=== PATIENT | female | born 1990 | race Caucasian/White ===

== ENCOUNTER 2017-03-18 09:24 | Emergency (ER) | payer OTHER ==
[2017-03-18 09:29] VITALS: BP 108/61; PULSE 82; O2SAT 100
[2017-03-18 09:35] VITALS: RESP 16; TEMP 97.8
--- NOTE | 2017-03-18 10:06 | ED PDOC ---
Upper Extremity Pain/Injury Time Seen by Provider: 03/18/17 09:38 Chief Complaint (Nursing): Upper Extremity Problem/Injury Chief Complaint (Provider): left wrist/hand pain History Per: Patient History/Exam Limitations: no limitations Onset/Duration Of Symptoms: Hrs (<1) Current Symptoms Are (Timing): Still Present Quality: Sharp Severity: Moderate Exacerbating Factor(s): Strenuous Use Of Affected Area, Movement Additional Complaint(s): 27yo female tripped/fell on curb, injuring left hand/wrist on outstretched hand. Denies head or neck trauma. Also injured R knee w small abrasion. States UTD on tetanus vaccine. Past Medical History Reviewed: Historical Data, Nursing Documentation, Vital Signs Vital Signs: Last Vital Signs Temp 97.8 F 03/18/17 09:33 Pulse 82 03/18/17 09:33 Resp 16 03/18/17 09:33 BP 108/61 03/18/17 09:33 Pulse Ox 100 03/18/17 09:33 - Medical History PMH: Depression, Hypothyroidism - Family History Family History: States: Unknown Family Hx - Social History Current smoker - smoking cessation education provided: No - Home Medications Home Medications: Ambulatory Orders Medication Instructions Recorded Ibuprofen [Motrin Tab] 600 mg PO Q6 PRN #15 tab 03/18/17 - Allergies Allergies/Adverse Reactions: Allergies Allergy/AdvReac Type Severity Reaction Status Date / Time No Known Allergies Allergy Verified 03/18/17 09:33 Review of Systems ROS Statement: Except As Marked, All Systems Reviewed And Found Negative Eyes: Negative for: Vision Change Cardiovascular: Negative for: Chest Pain Respiratory: Negative for: Shortness of Breath Gastrointestinal: Negative for: Abdominal Pain Musculoskeletal: Positive for: Hand Pain, Leg Pain (mild R knee pain), Other (L wrist pain). Negative for: Neck Pain, Back Pain Skin: Negative for: Rash, Lesions Neurological: Negative for: Headache, Dizziness Physical Exam - Reviewed Nursing Documentation Reviewed: Yes Vital Signs Reviewed: Yes - Physical Exam Appears: Positive for: Well, Non-toxic Head Exam: Positive for: ATRAUMATIC Skin: Positive for: Normal Color, Warm, Dry Eye Exam: Positive for: Normal appearance Neck: Positive for: Normal, Painless ROM Cardiovascular/Chest: Negative for: Tachycardia Respiratory: Negative for: Respiratory Distress Extremity: Positive for: Other (+ tender L wrist/snuff box and prox hand, FROM no deformity; R knee small abrasion (patient self reported, pants not removed on request) also small abrasion R palm) Neurologic/Psych: 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 Negative for : Motor/Sensory Deficits - ECG O2 Sat by Pulse Oximetry: 100 - Radiology X-Ray: Interpreted by Me, Read By Radiologist X-Ray Interpretation: Other (neg fracture) Medical Decision Making Medical Decision Making: given snuff box tenderness L thumb spica splint placed by tech Referred ortho Return to ER for any worse or new symptoms [place] improved s/p toradol Disposition - Clinical Impression Clinical Impression: Wrist injury - Patient ED Disposition Is Patient to be Admitted: No Counseled Patient/Family Regarding: Studies Performed, Diagnosis - Disposition Disposition: Routine/Home Disposition Time: 10:50 Condition: STABLE
--- NOTE | 2017-03-18 10:40 | RAD ---
PROCEDURE: Left Hand Radiographs. HISTORY: fall L hand pain COMPARISON: None. FINDINGS: BONES: No acute cardiopulmonary disease appreciated. JOINTS: Normal. No osteoarthritic changes. SOFT TISSUES: Normal. OTHER FINDINGS: None. IMPRESSION: Unremarkable left hand radiographs.
--- NOTE | 2017-03-18 10:41 | RAD ---
PROCEDURE: Left Wrist Radiographs. HISTORY: fall, L wrist pain COMPARISON: None. FINDINGS: BONES: No acute fracture or destructive bony lesion identified. The navicular bone appears intact. JOINTS: Normal. No dislocation. SOFT TISSUES: Normal. OTHER FINDINGS: None. IMPRESSION: Unremarkable left wrist radiographs.
== END 2017-03-18 11:06 | disposition home or self-care (01) ==
LOC: H.ER 09:24
DX: S69.92XA Unspecified injury of left wrist, hand and finger(s), initial encounter (principal); W18.09XA Striking against other object with subsequent fall, initial encounter; Y93.01 Activity, walking, marching and hiking
CPT/HCPCS: 29125; 73110; 73130; 81025; 96372; 99283; J1885